=== PATIENT | male | born 1935 | race Caucasian/White ===

== ENCOUNTER → 2017-05-11 | Outpatient (CLI) | payer MEDICARE, OTHER ==
[~2017-05-11] MED LIST: ACET-1600 PO; ATEN-104 PO; ATOR20TA PO; ATOR20TA9; CETI10CA; DIGO125T PO; DILT360C25 PO; FURO40TA6 PO; POTA20PA25 PO; POTA20TA6 PO; WARF2.5T73 PO; WARF5TAB7 PO
== END | disposition home or self-care (01) ==
LOC: CVU 12:02
PROVIDERS: ATTEND Internal Medicine Cardiovascular Disease
DX: I35.8 Other nonrheumatic aortic valve disorders (principal)
CPT/HCPCS: 93306

== ENCOUNTER → 2020-04-14 | Outpatient (CLI) | payer MEDICARE, OTHER ==
[~2020-04-14] MED LIST changes: +ATOR20TA37; -ATOR20TA9; -DIGO125T PO; +DIGO125T85 PO; +WARF-36 PO; +WARF2.5T32 PO; -WARF2.5T73 PO; -WARF5TAB7 PO
== END | disposition home or self-care (01) ==
LOC: CVU 15:37
PROVIDERS: ATTEND Internal Medicine Cardiovascular Disease
DX: I08.8 Other rheumatic multiple valve diseases (principal); I11.9 Hypertensive heart disease without heart failure
CPT/HCPCS: 93306

== ENCOUNTER 2021-05-25 14:50 | Outpatient (CLI) | payer MEDICARE, OTHER ==
[~2021-05-25 14:50] MED LIST changes: +POTA-143 PO; -POTA20TA6 PO
== END 2021-05-25 23:59 | disposition home or self-care (01) ==
LOC: CFH 14:50
PROVIDERS: ATTEND Internal Medicine Cardiovascular Disease
DX: I08.8 Other rheumatic multiple valve diseases (principal); I11.9 Hypertensive heart disease without heart failure; I48.0 Paroxysmal atrial fibrillation
CPT/HCPCS: 93306